=== PATIENT | female | born 1985 | race Two or more races ===

== ENCOUNTER 2019-05-18 21:32 | Outpatient (AMB) | payer MEDICAID, SELFPAY ==
[2019-05-18 22:57] VITALS: BP 159/99; PULSE 82; RESP 18; TEMP 36.8; O2SAT 99; BMI 43.4
--- NOTE | 2019-05-18 22:57 | URCARE_ITS ---
Intake Ht./Wt. Decline/Exclusions Patient Declined Height and Weight this visit: No PT Meets exclusion criteria: No Vital Signs 05/18/19 22:57 Height 1.55 m Height Method Measured Weight 104.383 kg Weight Measurement Method Standing Scale BMI 43.4 Temp 98.2 F Temp Source Temporal Artery Scan Pulse 82 Pulse Source Monitor Respiration 18 BP 159/99 H Blood Pressure Source Automatic Cuff Blood Pressure Location Right Upper Arm Position Sitting Pulse Oximetry (%) 99 Oxygen Delivery Method Room Air Intake [place] Travel (last 14 days): No [facility] Travel (last 14 days): No Been in Contact w/Anyone Being Evaluated for Coronavirus (last 14 days): No Been in Close Contact w/Anyone Dx w/Coronavirus: No Zika Travel: No Been in contact w/anyone who has been Dx w/Zika Virus: No Been in contact w/anyone sick during travel outside country: No Patient >or equal to 18 years BMI outside of range 18.5-24.9: Yes Visit Reasons: UC Rash Primary Care Provider: MD HUNTER RAYNALDO Is patient in pain?: No Triage Triage Allergy / Med Rec Allergies vancomycin Allergy (Intermediate, Verified 05/18/19 23:05) hives latex Allergy (Mild, Verified 05/18/19 23:05) RASH Medication Reconciliation hydroxyzine HCl 25 mg tablet See Rx Instructions .ROUTE .COMPLEX #30 tab 05/18/19 [Rx] prednisone 20 mg tablet See Rx Instructions PO QAM #9 tab 05/18/19 [Rx] Band Placement: Patient Identification SANTOSH: [id number] Arrival Mode of Arrival: Private Vehicle Method of Arrival: Ambulatory Accompanied By: Self Prehospital Treatment: benadryl 50mg at 1300 PCP or OBGYN visit in last 3 months: Yes Language Preferred Language: French Spinner Cap Frame Required: No Female History Now: No Last Menstrual Period: 05/13/19 : No Social History Alcohol / Drugs Hx Alcohol Use: No Hx Substance Use: No Safety Do You Feel Safe at Home: Yes Authorities Contacted: N/A Coy Fall Scale Special Populations Patient Comatose, Paralyzed or Immobile: No Patient Under the Age of 44 Years Old: No Assessment History of falling; immediate or within 3 months: No Secondary diagnosis: No Ambulatory aid: None IV Infusion: No Gait/Transferring: Normal/bedrest/immobile Mental Status: Oriented to own ability Score Score: 0 Risk Level/Action Risk Level: Low Risk Action: Good Basic Nursing Care Fall Star Level 1 Fall Star Level 1: Yes Patient Education Topic Education Topics: Plan of Care Teaching Recipient: Patient Readiness, Motivation to Learn: Active Methods: Verbal instruction Educ Materials Suggested by INFO Button/Rx Monograph Given: No Response: Verbalize Understanding Spinner Cap Frame Required: No [facility] Hx Congestive Heart Failure: No Hx Diabetes Mellitus Type 1: No Hx Diabetes Mellitus Type 2: No Hx Renal Disease: No Hx Chronic Obstructive Pulmonary Disease (COPD): No Past Medical History Reviewed and agree with Nursing documentation.: Yes Past Medical History History Provided By: Patient Past Medical History: Yes Cardiac Medical History Hx Congestive Heart Failure: No Endocrine Medical History Hx Diabetes Mellitus Type 1: No Hx Diabetes Mellitus Type 2: No Genitourinary Medical History Hx Renal Disease: No Respiratory Medical History Hx COPD: No Female Reproductive Surgical History Hx Section: Yes HPI Rash History of Present Illness This is a 34-year-old female who presents to the urgent care complaining of an itchy rash to her hands that began earlier today. She denies any fever chills nausea vomiting or diarrhea. No known allergen exposure. No one else at home or work has a rash. She denies any new soaps lotions body washes detergents pets animals foods or medications. Current symptoms: Reports pruritis Associated symptoms: Denies fever(s) Review of Systems (UC) Review of Systems All systems reviewed & no additional complaints except as documented Const Constitutional: Denies fever(s) Skin/Breast Skin/Breast: Reports as per HPI, Reports itching and Reports rash Exam (UC) Limitations: no limitations General Appearance: alert, in no apparent distress, comfortable, cooperative, healthy appearing, well developed and well groomed Head exam: atraumatic, normocephalic and normal inspection Eye exam: Reports normal appearance and Reports EOMI ENT exam: Present normal exam Neck Exam: Present normal inspection and supple Chest/Breast Exam: Present normal inspection SPO2%: 99% SPO2 type: Room Air SPO2% Normal/Abnormal: Normal Respiratory exam: Present normal respiratory effort and able to speak in complete sentences Cardiovascular exam: Present regular rate Extremities exam: normal inspection Back exam: Present normal inspection Neurological Exam: Present alert, awake and oriented X3 Psychiatric exam: Present normal affect and normal mood Skin exam: Present warm, dry, intact, normal color and rash (+ Mildly erythematous macular rashes noted to the hands without signs or symptoms of secondary infection. No vesicles.) Office Procedures Level of Care Nursing/Assessment/Reassessment Patient Status: Established Patient Nursing Assessment/Reassessment: Triage Asessment, Initial Vital Signs and RN General Assessments Coordination of Care: DC Instructions Simple 1-2 sets Established Patient Charge Established Patient Point Assignment: 40 Established Patient Point Assignment: EP Level 2 (40-75) Procedures: Pulse Ox reading: Yes Assessment and Plan Assessment & Plan (1) Hand dermatitis: Plan Details Other Medications: New: hydroxyzine HCl 1 tab PO Q6 hours prn itching 30 tabs 0RF prednisone PO QAM; Take 40mg (2 tabs) PO QAM x 3 days, then 20mg (1 tab) PO QAM x 3 days 9 tabs 0RF Additional Comments: Follow up with your doctor in 3-5 days for recheck and reevaluation. Take any / all medication(s) as directed. If worse, not improving, or any concerns go immediately to the EMERGENCY ROOM. DISCHARGE NOTE: I emphasized the need for follow-up with their primary care provider. Failure to follow-up could result in a poor outcome or failure of treatment altogether. If the patient is unable to follow-up with their primary care provider, they are to go to the Emergency Department if their symptoms persist or worsen. I have reviewed the discharge treatment plan and follow-up instructions with the patient and/or patient representatives, addressed any concerns, and answered any and all questions. They have verbalized understanding of the discharge treatment plan. Primary Care Provider: MD HUNTER RAYNALDO Instructions: ED Dermatitis Non Specific Rash Additional Information PA/SIGN WIRER Supervising Physician: Franklin Sidhu DC Evaluation Discharge Information Seen, Treated and Released by Provider: No Left Prior to Receiving Discharge Instructions: No Transfer to Outside Facility: No Vital Signs Vitals Signs N/A: Yes Discharge Information Condition on Discharge: Stable Mode of Discharge: Ambulatory Discharge Transportation: Private Vehicle Instructions Spinner Cap Frame Required: No Discharge Instructions Given To: Patient Was Follow up Care Ordered: Yes Verbalizes Understanding of Discharge Instructions: Yes [facility] information card provided?: No Patient plan follow up w/PCP for [facility]: No
== END 2019-05-18 23:42 | disposition home or self-care (01) ==
PROVIDERS: PCP Physician Assistant; Referring Provider Physician Assistant; Visit Provider Physician Assistant

== ENCOUNTER 2024-04-09 01:47 | Emergency (ER) | payer MEDICAID, SELFPAY ==
[2024-04-09 01:48] VITALS: BP 169/114; PULSE 81; RESP 20; TEMP 36.7; O2SAT 100; BMI 38.7
[2024-04-09] MEDS: KETOROLAC INJ 60 MG/2 ML VIAL 30 MG IM (02:16)
--- NOTE | 2024-04-09 02:23 | EDNOTE_ITS ---
ED Dental RME/HPI General Chief complaint: Dental/Oral/Throat Stated complaint: TOOTHACHE Time Seen by Provider: 04/09/24 02:01 Source: patient, RN notes reviewed and old records reviewed Arrival date/time: 04/09/24 01:47 Mode of arrival: ambulatory Limitations: no limitations RME / HPI RME / HPI Narrative: 39yof presents to ED for left lower toothache x1 day. History of fractured tooth and dental caries. No fever, sore throat, shortness of breath, facial swelling, nausea/vomiting or dizziness reported. 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 Patient plans to call her dentist first thing in the morning. Related Data Previous Rx's ?Medication ?Instructions ?Recorded acetaminophen 500 mg tablet 1,000 mg (2 x 500 mg) PO Q6H PRN 04/09/24 (Tylenol Extra Strength) pain #30 tabs amoxicillin 875 mg-potassium 1 tab PO BID 10 days #20 tabs 04/09/24 clavulanate 125 mg tablet ibuprofen 800 mg tablet 800 mg PO Q8H PRN pain #30 tabs 04/09/24 Allergies Allergy/AdvReac Type Severity Reaction Status Date / Time vancomycin Allergy Intermediate hives Verified 04/09/24 01:50 latex Allergy Mild RASH Verified 04/09/24 01:50 Review of Systems Review of Systems Systems Reviewed: All systems reviewed, normal except as documented Constitutional Constitutional: Denies chills, Denies fever(s) and Reports headache(s) ENT Ears, Nose, Mouth, and Throat: Reports dental pain and Reports headache(s) Cardiovascular Cardiovascular: Denies dyspnea Respiratory Respiratory: Denies dyspnea Gastrointestinal Gastrointestinal: Denies nausea and Denies vomiting Neurologic Neurologic: Reports headache(s) Past Medical History Past Medical History CARDIAC: Positive Hypertension GASTROINTESTINAL: Positive Obesity Surgical History SURGICAL: Positive Section Social History SMOKING STATUS: Never smoker SUBSTANCE USE: does not use ALCOHOL: Never ED Exam General Limitations: Present no limitations General appearance: Present alert and in no apparent distress Head Head exam: Present atraumatic and normocephalic Eye Eye exam: Present normal appearance, PERRL and EOMI ENT ENT exam: Present mucous membranes moist and other (Generalized dental caries. Fractured left lower premolar. Mild surrounding gingival erythema. No obvious drainable abscess. No trismus or facial swelling) Neck Neck exam: Present normal inspection and full ROM Chest Chest inspection: Present normal inspection and symmetric chest wall rise Respiratory Respiratory exam: Present normal lung sounds bilaterally; Absent respiratory distress Cardiovascular Cardiovascular exam: Present regular rate and normal rhythm Extremities Exam Extremities exam: Present normal inspection and full ROM Neurological Exam Neurological exam: Present alert and oriented X3 Psychiatric Psychiatric exam: Present normal affect and normal mood Skin Skin exam: Present warm, dry, intact and normal color Course Quality Measures none Orders Category Date Time Status Ketorolac Inj [Toradol Inj] Med 04/09/24 02:11 Discontinued 30 mg IM X1 ONE Vital Signs Vital signs: Vital Signs Temperature 98.0 F 04/09/24 01:48 Pulse Rate 81 04/09/24 01:48 Respiratory Rate 20 04/09/24 01:48 Blood Pressure 169/114 H 04/09/24 01:48 Pulse Oximetry (%) 100 04/09/24 01:48 Oxygen Delivery Method Room Air 04/09/24 01:48 Dental / Oral MDM Narrative MDM Narrative:: 39yof presents to ED for left lower toothache x1 day. History of fractured tooth and dental caries. No fever, sore throat, shortness of breath, facial swelling, nausea/vomiting or dizziness reported. 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 Patient plans to call her dentist first thing in the morning. Will treat for dental pain and possible dental infection. Encourage close follow-up with dentistry. Stable for discharge, RTED precautions given. Patient data External records reviewed:: [facility] previous records (Admit 12/01/2023 for pyelonephritis) Clinical information provided by:: patient Social determinants that could affect healthcare access:: none Patient has the following chronic illnesses:: Hypertension, obesity How is presenting disease/condition affected by chronic disease/condition?: exacerbated by Evaluation data The following diagnostics were reviewed and interpreted by me:: other (specify) (None) Lab and/or radiology exams considered but not ordered:: None Interpretation Summary: na Medications / Prescriptions Medications or Prescriptions considered but not ordered:: None Medication administrations:: Medication Administration History Discontinued Medications Ketorolac Tromethamine (Ketorolac Inj 60 Mg/2 Ml Vial) 30 mg IM X1 ONE Stop: 04/09/24 02:12 Last Admin: 04/09/24 02:16 Dose: 30 mg Documented By: CVL Above medication administered in ED Consultations Consultation(s) initiated? (list below): No Diagnosis Dental Differential Diagnosis: gingival abscess, dental caries, toothache, dental abscess and fracture of tooth Most likely diagnosis given after review of the tests above:: Dental pain, fractured tooth Admission Indicated Admission indicated?: not indicated Admission Request Was there a request for admission?: No Disposition Plan Disposition Plan: Discharge Discharge Attestation Discharge Attestation: The patient and all family members were given an opportunity to ask questions and understood the discharge instructions. Discharge instructions specifically effects, indications for sooner follow up or return to the emergency department, and the expected course of current diagnosis. Patient condition: Stable Discharge Plan Plan Patient Disposition: HOME (Self Care) Patient condition on transfer: Stable Prescriptions/Referrals Prescriptions/Med Rec: New amoxicillin-pot clavulanate 875-125 mg tablet 1 tab PO BID 10 Days Qty: 20 0RF ibuprofen 800 mg tablet 800 mg PO Q8H PRN (Reason: pain) Qty: 30 0RF acetaminophen [Tylenol Extra Strength] 500 mg tablet 1,000 mg PO Q6H PRN (Reason: pain) Qty: 30 0RF Referrals: Eulalio Burns MD [Primary Care Provider] - In 1 week Problem List Clinical Impression: Toothache, Fracture of tooth Patient/Caregiver Discharge Instructions Education Materials: ED Dental Pain Print Language: Slovak Stand Alone Forms: Kenisha Award Info., Work/School Release, Patient Portal Info Letter VALDEMAR/JEFF Supervising Physician FABIO Supervising Physician: Hill
[2024-04-09 02:38] VITALS: RESP 18
== END 2024-04-09 02:38 | disposition home or self-care (01) ==
PROVIDERS: Emergency Provider Emergency Medicine; PCP Family Medicine
DX: S02.5XXA Fracture of tooth (traumatic), initial encounter for closed fracture (principal); X58.XXXA Exposure to other specified factors, initial encounter
CPT/HCPCS: 96372; 99283; J1885